=== PATIENT | male | born 1995 | race Caucasian/White ===

== ENCOUNTER 2019-10-13 13:22 | Emergency (ER) | payer MEDICAID, SELFPAY ==
[2019-10-13 13:46] VITALS: BP 121/78; PULSE 90; RESP 19; TEMP 36.9; O2SAT 97; BMI 31.3
[2019-10-13 13:46] LABS: UTC Strep Screen (Rapid) Negative (Negative)
--- NOTE | 2019-10-13 13:50 | HMH.EDUTC ---
[facility] [place] Disposition Clinical Impression: Otitis media Qualifiers: Otitis media type: unspecified Laterality: right Qualified Code(s): H66.91 - Otitis media, unspecified, right ear URI (upper respiratory infection) Qualifiers: URI type: unspecified URI Qualified Code(s): J06.9 - Acute upper respiratory infection, unspecified Disposition: Home, Self-Care Condition on Discharge: Good Instructions: Middle Ear Infections (Alternative Therapy), Sore Throat, Middle Ear Infection, Mometasone Nasal Quinter, Amoxicillin, Preventing the Spread of Coronavirus Discharge Instructions Additional Instructions: *Monitor Temp, Over the counter Motrin or Tylenol as directed/as needed Tylenol every 4 hours and Motrin every 6 hours (as long as your family doctor has told you that you can take it) for fever or pain. and straight to ER if unable to lower temp less than 101.0 after medication given *Warm salt water gargles may help to soothe the throat *Throat Lozenges *Warm fluids like tea with honey may help to soothe the throat *Sleep elevated *Humidifier/Vaporizer *Nasonex 2 sprays in each nostril daily but be aware that it may take 2-3 days before you notice improvement Go home and self quarantine, you was given a handout of what to do, No work until test back and negative where you have had no known exposure to COVID19 Your throat swab was sent for culture. Those results are typically sent to your primary care. Be sure to follow up in 2-3 days with your family doctor/primary care physician if no improvement so they can review those result and treat if necessary. If you don?t have a primary care doctor, I recommend you get one but in the mean time, you will have to return to a walk in clinic Call back to the [facility] tomorrow or Wed to see if your results are back Follow up IMMEDIATELY for new or worsening symptoms or no Noticeable improvement over the next 48-72 hours. 911 for difficulty breathing or swallowing Prescriptions: Amoxicillin [Amoxicillin 500mg Cap] 500 mg PO TID #30 cap Transmission Status: Received by [facility] #[id number] Mometasone Furoate [Nasonex] 2 sprays NS DAILY #1 spray.pump Transmission Status: Received by [facility] #[id number] Referrals: Abdifatah Abarca [Primary Care Provider] - As needed Forms: Work/School Release Medical Decision Making - Jamari Inquiry Pt receiving controlled substance: No Jamari was queried for this patient: No Vital Signs: 10/13/19 13:46 Temperature 98.5 F Temperature Source Oral Pulse Rate [Right Brachial] 90 Respiratory Rate 19 Blood Pressure [Right Arm] 121/78 Blood Pressure Mean [Right Arm] 92 Blood Pressure Source [Right Arm] Automatic Cuff Blood Pressure Position [Right Arm] Sitting 02 Sat by Pulse Oximetry 97 Oxygen Delivery Method Room Air - Lab Data Lab results reviewed: Yes: I reviewed the patient's lab results. Lab Results 10/13/19 13:30: Strep Scn Rapid Clinic Negative Orders (Tests/Meds): ORDERS Category Date Time Status SARS-CoV-2, EDEN Stat Lab 10/13/19 13:49 Ordered Strep Screen Confirmation Stat Micro 10/13/19 13:30 Received [facility] [place] HPI - General Stated complaint: fever, sore throat cough Time Seen by Provider: 10/13/19 13:50 Mode of Arrival: Ambulatory Source of Information: Patient Limitations: No Limitations Description of Symptoms (Recalled from Triage Doc. by RN): PATIENT C/O SORE THROAT, COUGH, FEVER, AND HEADACHE SINCE YESTERDAY HEENT Symptoms (Recalled from RN notes): Yes Resp Symptoms (Recalled from RN notes): Yes Skin Symptoms (Recalled from RN notes): No MS Symptoms (Recalled from RN notes): No Functional Status (Recalled from RN notes): WNL - History of Present Illness Provider Complaint: Patient states that he started feeling bad yesterday with fever, chills, sore throat and headache State that he is also having nasal congestion and cough States that he was worried that he may have strep throat so he come in to get c
[2019-10-13 14:12] VITALS: BP 121/78; PULSE 90; RESP 19; TEMP 36.9; O2SAT 97
[2019-10-15 13:26] LABS: Covid-19 Nasal PCR Sendout Lex NOT DETECTED
== END 2019-10-13 14:18 | disposition home or self-care (01) ==
PROVIDERS: Emergency Provider Nurse Practitioner; PCP Pediatrics
DX: H66.91 Otitis media, unspecified, right ear (principal); J06.9 Acute upper respiratory infection, unspecified; Z88.8 Allergy status to other drugs, medicaments and biological substances
CPT/HCPCS: 87880; 99202; U0004

== ENCOUNTER 2020-04-26 16:24 | Emergency (ER) | payer MEDICAID, SELFPAY ==
[2020-04-26 16:45] VITALS: BP 121/60; PULSE 69; RESP 18; TEMP 36.7; O2SAT 99; BMI 31.8
[2020-04-26 16:50] VITALS: BP 121/60; PULSE 69; RESP 18; TEMP 36.7; O2SAT 99; BMI 31.8
--- NOTE | 2020-04-26 17:05 | HMH.EDUTC ---
[facility] [place] Disposition Clinical Impression: Laceration Disposition: Home, Self-Care Condition on Discharge: Good Instructions: Laceration Repair, How to Care for a Laceration After Repair, DI for Laceration Repair -- Simple Additional Instructions: Suture instructions: You have required stitches today. Please read the following instructions so you know how to care for them: 1. Keep wound area dry for the first 24 hours. 2 May clean gently with mild soap and water, after 48 hours to prevent crusting over suture knots. 3. You may shower if your provider gives permission but do not take a bath until the skin is healed.. 4. Never leave a wet dressing or Band-Aid on your stitches as this allows bacteria to reach the area and may cause infection. Band-aids can cause the wound to sweat and not recommended to wear for long periods of time Watch for signs of infection: Increasing redness, tenderness or warmth around the suture site Unusual swelling around the site Appearance of pus around each suture or any red streaks Fever If you develop any of the above signs or symptoms of infection, Follow up with Family Physician immediately 5. Suture removal in _7-10___days 6. Return to [facility] or follow up with family doctor for removal. This can be done by any medical provider during regular hours on Sunday through Sunday, by appointment. Prescriptions: Amoxicillin/Potassium Clav [Augmentin 875-125 Tablet] 1 tab PO Q12H 7 Days #14 tab Transmission Status: Pending to [facility] #[id number] Referrals: Abdifatah Abarca [Primary Care Provider] - As needed Time of Disposition: 17:40 Medical Decision Making - Jamari Inquiry Pt receiving controlled substance: No Jamari was queried for this patient: No Vital Signs: 04/26/20 16:45 04/26/20 16:50 Temperature 98.0 F 98.0 F Temperature Source Oral Oral Pulse Rate [Right Brachial] 69 69 Respiratory Rate 18 18 Blood Pressure [Right Arm] 121/60 121/60 Blood Pressure Mean [Right Arm] 80 80 Blood Pressure Source [Right Arm] Automatic Cuff Automatic Cuff Blood Pressure Position [Right Arm] Sitting Sitting 02 Sat by Pulse Oximetry 99 99 Oxygen Delivery Method Room Air Room Air Orders (Tests/Meds): ED MEDICATIONS Discontinued Medications Generic Name Dose Route Start Last Admin Trade Name Freq PRN Reason Stop Dose Admin Tetanus/Reduced Diphtheria/Acell Pertussis 0.5 ml 04/26/20 17:11 04/26/20 17:20 Tet/Diphth/Pert-Adult 0.5ml Syringe IM 04/26/20 17:12 0.5 ml .ONCE ONE Administration [facility] [place] HPI - General Stated complaint: cut on left thumb Time Seen by Provider: 04/26/20 17:05 Mode of Arrival: Ambulatory Source of Information: Patient Limitations: No Limitations Description of Symptoms (Recalled from Triage Doc. by RN): PATIENT STATES HE WAS WORKING ON A TRUCK TODAY AND CUT HIS LEFT HAND ON A NATALI BUMPER. LACERATION TO LEFT HAND. HE CANNOT REMEMBER WHEN HIS LAST TETANUS SHOT WAS - History of Present Illness Provider Complaint: Patient unaware of last tetanus States that he was working on his truck when his hand slipped and he cut the base of his thumb on a broken natali bumper State that he looked at it and noticed it looked like he may need stitches so he come in to get it checked - Related Data Previous Rx's Medication Instructions Recorded Amoxicillin [Amoxicillin 500mg 500 mg PO TID #30 cap 10/13/19 Cap] Mometasone Furoate [Nasonex] 2 sprays NS DAILY #1 spray.pump 10/13/19 Amoxicillin/Potassium Clav 1 tab PO Q12H 7 Days #14 tab 04/26/20 [Augmentin 875-125 Tablet] Allergies Allergy/AdvReac Type Severity Reaction Status Date / Time metoclopramide [From [facility]GL[facility]] Allergy Unknown DIFFICULTY Verified 05/29/19 11:27 BREATHING [facility] History - Hepatitis A Screen Attestation statement:: This patient has been screened for Hepatitis A risk factors. I have reviewed the patient's past medical history: Yes Laterality Cases: Bilateral: T
[2020-04-26 17:47] VITALS: BP 121/60; PULSE 69; RESP 18; TEMP 36.7; O2SAT 99
== END 2020-04-26 17:50 | disposition home or self-care (01) ==
LOC: ER 16:34 → UTC 16:51
PROVIDERS: Emergency Provider Emergency Medicine; PCP Pediatrics
DX: S61.012A Laceration without foreign body of left thumb without damage to nail, initial encounter (principal); W26.8XXA Contact with other sharp object(s), not elsewhere classified, initial encounter; Y92.89 Other specified places as the place of occurrence of the external cause; Z23 Encounter for immunization
CPT/HCPCS: 12001; 90471; 90715; 99202; G0463